=== PATIENT | female | born 1965 | race Caucasian/White ===

== ENCOUNTER → 2016-11-19 | Outpatient (CLI) | payer BC ==
[~2016-11-19] MED LIST: 'PARAFON FORTE500 M1 PO; DARVOCET N 1001 TAB PO; DAYPRO600 M1 PO; NAPROSYN500 MG PO; NKHM; PEPCID20 MG PO; ROBAXIN750 MG PO; Zofran4 MG PO
[2016-11-19 10:00] LABS: BASO % 0.6 % (0.0-1.0); EOS # 0.1 10*3/uL (0.0-0.4); EOS % 1.9 % (1.0-4.0); HEMATOCRIT 41.9 % (37.0-47.0); HEMOGLOBIN 13.9 g/dl (12.0-16.0); LYMPH # 2.2 10*3/uL (1.3-4.4); LYMPH % 34.1 % (27.0-41.0); MEAN CELL VOLUME 96.5 fl (81.0-99.0); MEAN CORPUSCULAR HGB CONC 33.2 g/dl (33.0-37.0); MEAN PLATELET VOLUME 9.2 fl (9.6-12.3); MONO # 0.5 10*3/uL (0.1-1.0); MONO % 8.2 % (3.0-9.0); NEUT # 3.5 10*3/uL (2.3-7.9); PLATELET COUNT AUTOMATED 241 10*3/uL (130-400); RED BLOOD COUNT 4.34 10*6/uL (4.10-5.10); RED CELL DISTRI WIDTH 12.6 % (0-14.5); WHITE BLOOD COUNT 6.3 10*3/uL (4.8-10.8)
[2016-11-19 10:34] LABS: ALKALINE PHOSPHATASE 54 U/L (45-117); BILIRUBIN, TOTAL 0.3 mg/dl (0.2-1.0); BUN 10 mg/dl (7-24); CARBON DIOXIDE 27 mmol/L (21-32); CHLORIDE 107 mmol/L (98-107); CHOLESTEROL 194 mg/dL (<200); EST GLOM FILT AFRICAN AMERICAN > 60 ml/min; GLUCOSE 88 mg/dL (65-99); HDL CHOLESTEROL 77 mg/dl (40-60); LDH 153 U/L (84-246); LDL CHOLESTEROL 104 mg/dL (9-159); POTASSIUM 3.7 mmol/L (3.5-5.1); SGOT/AST 10 IU/L (3-35); SGPT/ALT 17 U/L (12-78); SODIUM 142 mmol/L (136-145); TOTAL PROTEIN 7.3 gm/dL (6.4-8.2); TRIGLYCERIDES 66 mg/dl (<150); VLDL CHOLESTEROL 13 mg/dL (6-40)
[2016-11-19 11:07] LABS: FOLIC ACID 15.34 ng/mL (>5.38)
== END | disposition home or self-care (01) ==
LOC: MAMMO 09:00 → LAB 09:04
PROVIDERS: Internal Medicine
DX: Z12.31 Encounter for screening mammogram for malignant neoplasm of breast (principal); R59.1 Generalized enlarged lymph nodes; Z78.9 Other specified health status

== ENCOUNTER → 2016-12-13 | Outpatient (CLI) | payer BC ==
[2016-12-13 12:41] LABS: BUN 12 mg/dl (7-24); CARBON DIOXIDE 27 mmol/L (21-32); CHLORIDE 103 mmol/L (98-107); EST GLOM FILT AFRICAN AMERICAN > 60 ml/min; GLUCOSE 88 mg/dL (65-99); POTASSIUM 3.8 mmol/L (3.5-5.1); SODIUM 140 mmol/L (136-145)
== END | disposition home or self-care (01) ==
LOC: CT 10:55 → LAB 10:55 → CT 11:00
PROVIDERS: Internal Medicine
DX: R59.1 Generalized enlarged lymph nodes (principal); B19.20 Unspecified viral hepatitis C without hepatic coma

== ENCOUNTER → 2017-02-22 | Day surgery (SDC) | payer BC ==
[~2017-02-22] VITALS: Ht 160 cm; Wt 58.1 kg
[2017-02-22 09:17] VITALS: BP 121/68
[2017-02-22 10:30] VITALS: BP 134/66
[2017-02-22 10:45] VITALS: BP 151/78
[2017-02-22 11:00] VITALS: BP 152/78
== END | disposition home or self-care (01) ==
LOC: SDC 02-21 13:15
DX: Z12.11 Encounter for screening for malignant neoplasm of colon (principal); D12.3 Benign neoplasm of transverse colon; K57.30 Diverticulosis of large intestine without perforation or abscess without bleeding; F17.210 Nicotine dependence, cigarettes, uncomplicated; Z79.899 Other long term (current) drug therapy; Z98.51 Tubal ligation status; Z98.890 Other specified postprocedural states; Z85.828 Personal history of other malignant neoplasm of skin

== ENCOUNTER 2020-12-29 14:02 | Emergency (ER) | payer BC ==
[~2020-12-29] VITALS: Wt 55.3 kg
[2020-12-29] MEDS ORDERED: IBU800 MG PO (18:40)
== END 2020-12-29 18:45 | disposition home or self-care (01) ==
LOC: ED 14:02
DX: M48.56XA Collapsed vertebra, not elsewhere classified, lumbar region, initial encounter for fracture (principal); F17.200 Nicotine dependence, unspecified, uncomplicated; Z98.890 Other specified postprocedural states

== ENCOUNTER 2021-11-25 18:40 | Emergency (ER) | payer SELFPAY ==
[~2021-11-25] VITALS: Ht 160 cm; Wt 54.4 kg
[~2021-11-25 18:40] MED LIST changes: +IBU800 MG PO
[2021-11-25] MEDS ORDERED: METHOCARBAMOL500 M1 PO (20:24)
[2021-11-25] MEDS ORDERED: PREDNISONE20 M1 PO (20:24)
== END 2021-11-25 20:48 | disposition home or self-care (01) ==
LOC: ED 18:40
DX: G89.29 Other chronic pain (principal); M25.511 Pain in right shoulder; Z98.51 Tubal ligation status

== ENCOUNTER → 2022-07-05 | Day surgery (SDC) | payer BC ==
[~2022-07-05] VITALS: Ht 161 cm; Wt 53.3 kg
[~2022-07-05] MED LIST changes: +METHOCARBAMOL500 M1 PO; +PREDNISONE20 M1 PO
[2022-07-05 07:55] VITALS: BP 130/74
[2022-07-05 08:45] VITALS: BP 136/61
[2022-07-05 08:57] VITALS: BP 135/63
[2022-07-05 09:15] VITALS: BP 118/63
== END | disposition home or self-care (01) ==
LOC: SDC 07-02 12:30
PROVIDERS: ATTEND Surgery
DX: Z12.11 Encounter for screening for malignant neoplasm of colon (principal); K63.5 Polyp of colon; K57.30 Diverticulosis of large intestine without perforation or abscess without bleeding; F17.210 Nicotine dependence, cigarettes, uncomplicated; Z98.890 Other specified postprocedural states; Z79.899 Other long term (current) drug therapy

== ENCOUNTER → 2022-07-10 | Outpatient (CLI) | payer BC | LOC: MAMMO 15:00 | PROVIDERS: ATTEND Physician Assistant | DX: Z12.31 Encounter for screening mammogram for malignant neoplasm of breast (principal) ==

== ENCOUNTER 2023-05-30 15:59 | Emergency (ER) | payer BC ==
[~2023-05-30] VITALS: Ht 160 cm; Wt 53.1 kg
[2023-05-30] MEDS ORDERED: NAPROSYN500 MG PO (19:20)
== END 2023-05-30 19:24 | disposition home or self-care (01) ==
LOC: ED 15:59
DX: S93.602A Unspecified sprain of left foot, initial encounter (principal); Z91.040 Latex allergy status; Z98.51 Tubal ligation status; Z90.49 Acquired absence of other specified parts of digestive tract; Z98.890 Other specified postprocedural states; F17.200 Nicotine dependence, unspecified, uncomplicated; X50.1XXA Overexertion from prolonged static or awkward postures, initial encounter; Y93.89 Activity, other specified; Y92.009 Unspecified place in unspecified non-institutional (private) residence as the place of occurrence of the external cause; Y99.8 Other external cause status

== ENCOUNTER → 2023-10-01 | Outpatient (CLI) | payer BC | END | disposition home or self-care (01) | LOC: MAMMO 03:25 → CT 10-08 17:00 | PROVIDERS: ATTEND Physician Assistant | DX: Z12.31 Encounter for screening mammogram for malignant neoplasm of breast (principal); Z12.2 Encounter for screening for malignant neoplasm of respiratory organs; I25.10 Atherosclerotic heart disease of native coronary artery without angina pectoris; J43.9 Emphysema, unspecified; N64.9 Disorder of breast, unspecified; F17.210 Nicotine dependence, cigarettes, uncomplicated; N63.11 Unspecified lump in the right breast, upper outer quadrant ==

== ENCOUNTER → 2024-10-27 | Outpatient (CLI) | payer BC ==
[2024-10-27 16:18] LABS: HEMATOCRIT 42.7 % (37.0-47.0); MEAN CELL VOLUME 100.5 fl (81.0-99.0); MEAN CORPUSCULAR HGB 32.7 pg (27.0-31.0); MEAN CORPUSCULAR HGB CONC 32.6 g/dl (33.0-37.0); MEAN PLATELET VOLUME 9.1 fl (9.6-12.3); RED BLOOD COUNT 4.25 10*6/uL (4.10-5.10); RED CELL DISTRI WIDTH 12.7 % (0-14.5); WHITE BLOOD COUNT 7.4 10*3/uL (4.8-10.8)
[2024-10-27 16:43] LABS: ALKALINE PHOSPHATASE 64 U/L (46-116); BUN 10 mg/dl (9-23); CHLORIDE 108 mmol/L (98-107); CHOLESTEROL 197 mg/dL (<200); LDL CHOLESTEROL 114 mg/dL (9-159); SGPT/ALT 9 U/L (5-49); TOTAL PROTEIN 7.1 gm/dL (6.0-8.0); TRIGLYCERIDES 61 mg/dl (<150)
== END | disposition home or self-care (01) ==
LOC: CT 10-22 16:00 → LAB 15:44 → CT 16:00
PROVIDERS: ATTEND Physician Assistant
DX: Z12.2 Encounter for screening for malignant neoplasm of respiratory organs (principal); J32.9 Chronic sinusitis, unspecified; I25.10 Atherosclerotic heart disease of native coronary artery without angina pectoris; R09.81 Nasal congestion; F17.211 Nicotine dependence, cigarettes, in remission; Z00.00 Encounter for general adult medical examination without abnormal findings